=== PATIENT | male | born 2000 | race Caucasian/White ===

== ENCOUNTER 2022-10-10 10:33 | Outpatient (CLI) | payer OTHER, SELFPAY ==
[2022-10-10 19:55] LABS: Chlamydia DNA Amplified* NOT DETECTED (No Detected); GC DNA Amplified* NOT DETECTED (No Detected)
== END 2022-10-10 10:34 | disposition home or self-care (01) ==
PROVIDERS: PCP Family Medicine; Visit Provider Family Medicine
DX: Z00.00 Encounter for general adult medical examination without abnormal findings (principal); Z11.3 Encounter for screening for infections with a predominantly sexual mode of transmission; Z13.6 Encounter for screening for cardiovascular disorders
CPT/HCPCS: 80061; 86480; 86703; 86803; 87491; 87591

== ENCOUNTER 2022-11-04 14:16 | Outpatient (CLI) | payer OTHER, SELFPAY | END 2022-11-04 14:17 | disposition home or self-care (01) | PROVIDERS: PCP Family Medicine; Visit Provider Nurse Practitioner Family | DX: R19.7 Diarrhea, unspecified (principal) | CPT/HCPCS: 80048 ==

== ENCOUNTER 2022-11-05 11:42 | Outpatient (CLI) | payer OTHER, SELFPAY | END 2022-11-05 11:43 | disposition home or self-care (01) | LOC: NFLDREF 11-10 08:35 | PROVIDERS: PCP Family Medicine; Referring Provider Family Medicine; Visit Provider Family Medicine | DX: R19.7 Diarrhea, unspecified (principal) | CPT/HCPCS: 87505 ==

== ENCOUNTER 2023-10-20 13:54 | Outpatient (CLI) | payer BC, SELFPAY | END 2023-10-20 13:55 | disposition home or self-care (01) | PROVIDERS: PCP Family Medicine; Visit Provider Family Medicine | DX: R63.4 Abnormal weight loss (principal) | CPT/HCPCS: 80048; 84443; 86703 ==